=== PATIENT | female | born 1955 | race Two or more races ===

== ENCOUNTER 2024-01-23 01:29 | Emergency (ER) | payer OTHER ==
[~2024-01-23] VITALS: Ht 160 cm; Wt 74.8 kg
[2024-01-23] MEDS ORDERED: ZESTRIL5 MG PO (01:40)
[2024-01-23] MEDS ORDERED: GLUMETZA1000 MG PO (01:41)
[2024-01-23] MEDS ORDERED: HYDRALAZINE HCL10 MG PO (01:41)
[2024-01-23] MEDS ORDERED: AMLODIPINE-OLM1 EAC2 PO (01:42)
[2024-01-23] MEDS ORDERED: CLONIDINE HCL 0.1 MG TABLET PO STA (02:25)
[2024-01-23] MEDS ORDERED: KETOROLAC TROMETHAMINE 30 MG VIAL IV STA (02:26)
[2024-01-23 02:45] LABS: HEMATOCRIT 36.4 % (36.0-45.00); HEMOGLOBIN 12.1 g/dL (12.0-15.00); MEAN CELL VOLUME 81.1 fL (80.00-100.00); MEAN CORPUSCULAR HGB CONC 33.3 g/dl (32.0-36.0); PLATELET COUNT 205 K/uL (150-450); RED BLOOD COUNT 4.49 M/uL (4.00-6.00); RED CELL DISTRIBUTION WIDTH 14.9 % (11.5-14.5)
[2024-01-23 03:02] LABS: ALBUMIN 3.8 gm/dL (3.4-5.0); BILIRUBIN TOTAL 0.42 mg/dL (0.3-1.2); CALCIUM 9.1 mg/dL (8.5-10.1); CREATININE SERUM 1.04 mg/dL (0.55-1.02); GFR 52.85; GLOBULINA 4.3 G/DL (2.4-3.5); POTASSIUM 3.8 mEq/L (3.5-5.1); TOTAL PROTEIN 8.1 gm/dL (6.4-8.2)
== END 2024-01-23 06:35 | disposition home or self-care (01) ==
LOC: ER 01:29
DX: I10 Essential (primary) hypertension (principal); M13.0 Polyarthritis, unspecified
CPT/HCPCS: 36415; 96365; 99282; J1885

== ENCOUNTER 2024-01-27 23:00 | Emergency (ER) | payer OTHER ==
[~2024-01-27] VITALS: Ht 157.5 cm; Wt 68.0 kg
[~2024-01-27 23:00] MED LIST: AMLODIPINE-OLM1 EAC2 PO; GLUMETZA1000 MG PO; HYDRALAZINE HCL10 MG PO; ZESTRIL5 MG PO
[2024-01-27] MEDS ORDERED: LOPRESSOR25 MG PO (23:24)
[2024-01-27] MEDS ORDERED: METOPROLOL SUCC50 MG PO (23:24)
[2024-01-27] MEDS ORDERED: AMLODIPINE BESYL5 MG PO (23:25)
[2024-01-27] MEDS ORDERED: LISINOPRIL40 MG PO (23:25)
[2024-01-27] MEDS ORDERED: HYDROCHLOROTHIA25 MG PO (23:25)
[2024-01-28] MEDS ORDERED: COZAAR50 MG PO (03:35)
== END 2024-01-28 04:20 ==
LOC: ER 23:00
DX: I10 Essential (primary) hypertension (principal)

== ENCOUNTER 2025-01-17 09:09 | Outpatient (CLI) | payer OTHER ==
[~2025-01-17 09:09] MED LIST changes: +AMLODIPINE BESYL5 MG PO; +COZAAR50 MG PO; +HYDROCHLOROTHIA25 MG PO; +LISINOPRIL40 MG PO; +LOPRESSOR25 MG PO; +METOPROLOL SUCC50 MG PO
== END 2025-01-17 09:11 | disposition home or self-care (01) ==
LOC: RAD 09:09
PROVIDERS: ATTEND General Practice
DX: M54.40 Lumbago with sciatica, unspecified side (principal)